=== PATIENT | female | born 1945 | race Caucasian/White ===

== ENCOUNTER 2021-04-30 08:32 | Emergency (ER) | payer MEDICARE, OTHER ==
[2021-04-30 08:41] VITALS: BP 144/69; PULSE 69; RESP 18; TEMP 97.8
--- NOTE | 2021-04-30 08:47 | ED ---
Upper Extremity HPI - General Chief Complaint: Extremity Injury, Upper Stated Complaint: Wrist pain Time Seen by Provider: 04/30/21 08:41 Source: patient, RN notes reviewed Mode of arrival: ambulatory Limitations: no limitations - History of Present Illness Initial Comments: This 76-year-old female presents emergency Department with chief complaint left wrist pain. She states this has been getting worse over the last 1 week. She doesn't believe that she may have slipped and fell into her bed and unsure she jammed it or not. She's been wearing a soft brace which has not helped. Patient is right-hand dominant. Denies any other notable injuries denies any paresthesias no other complaints. She states it is swollen. - Related Data Home Medications Medication Instructions Recorded Confirmed Metoprolol Tartrate [Lopressor] 25 mg PO BID 06/24/15 05/26/16 Sertraline [Zoloft] 100 mg PO HS 06/24/15 05/26/16 Simvastatin [Zocor] 20 mg PO DAILY 06/24/15 05/26/16 buPROPion XL [Wellbutrin XL] 300 mg PO DAILY 06/24/15 05/26/16 lisinopriL [Zestril] 10 mg PO HS 06/24/15 05/26/16 Hydrocodone/Acetaminophen [[place] 1 tab PO DAILY PRN 05/26/16 05/26/16 7.5-325] Allergies Allergy/AdvReac Type Severity Reaction Status Date / Time No Known Allergies Allergy Verified 04/30/21 08:37 Review of Systems ROS Statement: Those systems with pertinent positive or pertinent negative responses have been documented in the HPI. ROS Other: All systems not noted in ROS Statement are negative. Past Medical History Past Medical History: Coronary Artery Disease (CAD), Diabetes Mellitus History of Any Multi-Drug Resistant Organisms: None Reported Past Surgical History: Cholecystectomy, Hysterectomy Past Psychological History: Depression Smoking Status: Current every day smoker Past Alcohol Use History: None Reported Past Drug Use History: None Reported General Exam Limitations: no limitations General appearance: alert, in no apparent distress Head exam: Present: atraumatic, normocephalic, normal inspection Respiratory exam: Present: normal lung sounds bilaterally. Absent: respiratory distress, wheezes, rales, rhonchi, stridor Cardiovascular Exam: Present: regular rate, normal rhythm, normal heart sounds. Absent: systolic murmur, diastolic murmur, rubs, gallop, clicks Extremities exam: Present: other (Left wrist there is tenderness over the brachial radialis region, there is mild swelling, tenderness over the radius neurovascular intact with no tenderness proximal or distal) Neurological exam: Present: alert, reflexes normal. Absent: motor sensory deficit Course Vital Signs 04/30/21 08:37 Temperature 97.8 F Pulse Rate 69 Respiratory 18 Rate Blood Pressure 144/69 O2 Sat by Pulse 92 L Oximetry Procedures - Orthopedic Splinting/Casting Injury #1 Side: left Upper Extremity Injury Location: short arm, wrist Upper Extremity Immobilizer: thumb spica, synthetic pre-padded splint Medical Decision Making - Medical Decision Making X-rays shows evidence of osteoarthritis. Patient did have known injury has a Left wrist sprain, maybe some underlying denies will be splinted follow-up with orthopedics. Disposition Clinical Impression: Left wrist sprain, Left wrist tendonitis Disposition: HOME SELF-CARE Condition: Stable Instructions (If sedation given, give patient instructions): Wrist Injury (ED) Additional Instructions: Please return to the Emergency Department if symptoms worsen or any other concerns. Is patient prescribed a controlled substance at d/c from ED?: No Referrals: Hieu Espinoza MD [Primary Care Provider] - 1-2 days Robby Fofana DO [Doctor of Osteopathic Medicine] - 1-2 days Time of Disposition: 09:51
--- NOTE | 2021-04-30 09:11 | XR ---
Left wrist HISTORY: Trauma and pain 4 views of the left wrist There is soft tissue swelling present. Some underlying arthropathy changes are present. There is a sm all ossific density present at the lateral margin of the distal left radius which appears to be well- corticated and may be chronic, correlate for remote history of trauma. There is no evident dislocatio n. Bone mineralization is reduced. IMPRESSION: No acute fracture or dislocation is suspected, correlate for history of trauma. Osteoarth ritis.
== END 2021-04-30 10:02 | disposition home or self-care (01) ==
LOC: EC 08:32
DX: S63.502A Unspecified sprain of left wrist, initial encounter (principal); M77.8 Other enthesopathies, not elsewhere classified; E11.9 Type 2 diabetes mellitus without complications; I25.10 Atherosclerotic heart disease of native coronary artery without angina pectoris; F32.9 Major depressive disorder, single episode, unspecified; F17.200 Nicotine dependence, unspecified, uncomplicated; X58.XXXA Exposure to other specified factors, initial encounter
CPT/HCPCS: 29125; 99283

== ENCOUNTER 2022-05-24 10:29 | Emergency (ER) | payer MEDICARE, OTHER ==
[2022-05-24 11:12] VITALS: BP 123/69; PULSE 60; RESP 18; TEMP 97.8
[2022-05-24 12:13] LABS: Basophils % (A) 0 %; Eosinophils # (A) 0.3 k/uL (0-0.7); Eosinophils % (A) 4 %; HCT 40.8 % (34.0-46.0); HGB 13.6 gm/dL (11.4-16.0); Lymphocytes # (A) 1.7 k/uL (1.0-4.8); Lymphocytes % (A) 26 %; MCH 32.3 pg (25.0-35.0); MCHC 33.2 g/dL (31.0-37.0); MCV 97.2 fL (80.0-100.0); Mean Platelet Volume 7.8; Monocytes # (A) 0.5 k/uL (0-1.0); Monocytes % (A) 7 %; Neutrophils # (A) 3.8 k/uL (1.3-7.7); Neutrophils % (A) 58 %; Platelet Count 203 k/uL (150-450); RDW 13.2 % (11.5-15.5); WBC 6.5 k/uL (3.8-10.6)
--- NOTE | 2022-05-24 12:18 | ED ---
Extremity Problem HPI - General Chief complaint: Extremity Problem,Nontraumatic Stated complaint: LT leg pain,Knee swelling Time Seen by Provider: 05/24/22 11:35 Source: patient, RN notes reviewed Mode of arrival: ambulatory Limitations: no limitations - History of Present Illness Initial comments: Patient is 77-year-old female presents to the emergency room with complaints of lower extremity swelling. She reports that the swelling is primar carlos manuel to her left lower extremity which is larger than her right lower extremity and the swelling is nonpitting. She reports has been going on for approximately 3-4 weeks. She reports that the pain and swelling begins on the medial aspect of her knee and radiates down. She denies any trauma to her knee or lower extremity. She denies any redness wounds or swelling. She denies any fevers, chills, shortness of breath, cough, orthopnea, chest pain, abdominal pain, nausea, vomiting or past medical history of for congestive heart failure. She does have a past medical history significant for hypertension, hyperlipidemia and depression. Overall with the exception of her left lower extremity discomfort she denies any other complaints or concerns at this time. - Related Data Home Medications Medication Instructions Recorded Confirmed Metoprolol Tartrate [Lopressor] 25 mg PO BID 06/24/15 05/26/16 Sertraline [Zoloft] 100 mg PO HS 06/24/15 05/26/16 Simvastatin [Zocor] 20 mg PO DAILY 06/24/15 05/26/16 buPROPion XL [Wellbutrin XL] 300 mg PO DAILY 06/24/15 05/26/16 lisinopriL [Zestril] 10 mg PO HS 06/24/15 05/26/16 Hydrocodone/Acetaminophen [[place] 1 tab PO DAILY PRN 05/26/16 05/26/16 7.5-325] Allergies Allergy/AdvReac Type Severity Reaction Status Date / Time No Known Allergies Allergy Verified 05/24/22 11:12 Review of Systems ROS Statement: Those systems with pertinent positive or pertinent negative responses have been documented in the HPI. ROS Other: All systems not noted in ROS Statement are negative. Past Medical History Past Medical History: Coronary Artery Disease (CAD), Diabetes Mellitus History of Any Multi-Drug Resistant Organisms: None Reported Past Surgical History: Cholecystectomy, Hysterectomy Past Psychological History: Depression Smoking Status: Current every day smoker Past Alcohol Use History: None Reported Past Drug Use History: None Reported General Exam Limitations: no limitations Course Vital Signs 05/24/22 11:08 Temperature 97.8 F Pulse Rate 60 Respiratory 18 Rate Blood Pressure 123/69 O2 Sat by Pulse 96 Oximetry Medical Decision Making - Medical Decision Making Due to unilateral swelling though low probability of DVT will check Doppler. Will also check x-ray of right knee. Suspect underlying osteoarthritis with decreased range of motion making lower extremity swelling worse. Will check CBC and CMP to evaluate hydration status along with probable BMP to evaluate for overload status. No indication for other diagnostic imaging at this time. Doppler negative for acute DVT concern for possible cystic post popliteal. X-ray of the left knee consistent with osteoarthritic changes most significant with tricompartment where her pain is persisting. Labs show mild dehydration. No evidence of infection or CHF. Full discharge home. Encouraged range of motion as tolerated for knee and follow-up with her primary care provider in regards to arthritis and left popliteal cyst. Advised to utilize ibuprofen or Tylenol as needed for pain. Case discussed with Dr. Bean. - Lab Data Result diagrams: 05/24/22 11:55 05/24/22 11:55 Lab Results 05/24/22 05/24/22 05/24/22 Range/Units 11:55 11:55 11:55 WBC 6.5 (3.8-10.6) k/uL RBC 4.20 (3.80-5.40) m/uL Hgb 13.6 (11.4-16.0) gm/dL Hct 40.8 (34.0-46.0) % MCV 97.2 (80.0-100.0) fL MCH 32.3 (25.0-35.0) pg MCHC 33.2 (31.0-37.0) g/dL RDW 13.2 (11.5-15.5) % Plt Count 203 (150-450) k/uL MPV 7.8 Neutrophils % 58 % Lymphocytes % 26 % Monocytes % 7 % Eosinophils % 4 % Basophils % 0 % Neutrophils # 3.8 (1.3-7.7) k/uL Lymphocytes # 1.7 (1.0-4.8) k/uL Monocytes # 0.5 (0-1.0) k/uL Eosinophils # 0.3 (0-0.7) k/uL Basophils # 0.0 (0-0.2) k/uL Sodium 136 L (137-145) mmol/L Potassium 4.6 (3.5-5.1) mmol/L Chloride 105 (98-107) mmol/L Carbon Dioxide 27 (22-30) mmol/L Anion Gap 4 mmol/L BUN 25 H (7-17) mg/dL Creatinine 0.98 (0.52-1.04) mg/dL Est GFR (CKD-EPI)AfAm 65 (>60 ml/min/1.73 sqM) Est GFR (CKD-EPI)NonAf 57 (>60 ml/min/1.73 sqM) Glucose 106 H (74-99) mg/dL Calcium 9.8 (8.4-10.2) mg/dL Magnesium 2.0 (1.6-2.3) mg/dL Total Bilirubin 0.4 (0.2-1.3) mg/dL AST 20 (14-36) U/L ALT 18 (4-34) U/L Alkaline Phosphatase 81 (38-126) U/L NT-Pro-B Natriuret Pep 623 pg/mL Total Protein 7.1 (6.3-8.2) g/dL Albumin 4.2 (3.5-5.0) g/dL Urine Color Urine Appearance (Clear) Urine pH (5.0-8.0) Ur Specific [place] (1.001-1.035) Urine Protein (Negative) Urine Glucose (UA) (Negative) Urine Ketones (Negative) Urine Blood (Negative) Urine Nitrite (Negative) Urine Bilirubin (Negative) Urine Urobilinogen (<2.0) mg/dL Ur Leukocyte Esterase (Negative) Urine RBC (0-5) /hpf Urine WBC (0-5) /hpf Ur Squamous Epith Cells (0-4) /hpf Urine Bacteria (None) /hpf Urine Mucus (None) /hpf 05/24/22 Range/Units 13:00 WBC (3.8-10.6) k/uL RBC (3.80-5.40) m/uL Hgb (11.4-16.0) gm/dL Hct (34.0-46.0) % MCV (80.0-100.0) fL MCH (25.0-35.0) pg MCHC (31.0-37.0) g/dL RDW (11.5-15.5) % Plt Count (150-450) k/uL MPV Neutrophils % % Lymphocytes % % Monocytes % % Eosinophils % % Basophils % % Neutrophils # (1.3-7.7) k/uL Lymphocytes # (1.0-4.8) k/uL Monocytes # (0-1.0) k/uL Eosinophils # (0-0.7) k/uL Basophils # (0-0.2) k/uL Sodium (137-145) mmol/L Potassium (3.5-5.1) mmol/L Chloride (98-107) mmol/L Carbon Dioxide (22-30) mmol/L Anion Gap mmol/L BUN (7-17) mg/dL Creatinine (0.52-1.04) mg/dL Est GFR (CKD-EPI)AfAm (>60 ml/min/1.73 sqM) Est GFR (CKD-EPI)NonAf (>60 ml/min/1.73 sqM) Glucose (74-99) mg/dL Calcium (8.4-10.2) mg/dL Magnesium (1.6-2.3) mg/dL Total Bilirubin (0.2-1.3) mg/dL AST (14-36) U/L ALT (4-34) U/L Alkaline Phosphatase (38-126) U/L NT-Pro-B Natriuret Pep pg/mL Total Protein (6.3-8.2) g/dL Albumin (3.5-5.0) g/dL Urine Color Yellow Urine Appearance Clear (Clear) Urine pH 5.5 (5.0-8.0) Ur Specific [place] 1.013 (1.001-1.035) Urine Protein Negative (Negative) Urine Glucose (UA) Negative (Negative) Urine Ketones Negative (Negative) Urine Blood Trace H (Negative) Urine Nitrite Negative (Negative) Urine Bilirubin Negative (Negative) Urine Urobilinogen <2.0 (<2.0) mg/dL Ur Leukocyte Esterase Negative (Negative) Urine RBC 1 (0-5) /hpf Urine WBC 5 (0-5) /hpf Ur Squamous Epith Cells 1 (0-4) /hpf Urine Bacteria Rare H (None) /hpf Urine Mucus Rare H (None) /hpf Disposition Clinical Impression: Osteoarthritis of left knee Disposition: HOME SELF-CARE Condition: Stable Instructions (If sedation given, give patient instructions): Osteoarthritis (ED) Additional Instructions: Recommend range of motion for arthritis to left knee. Avoid bedrest. Utilize Tylenol or ibuprofen [id number] as needed for pain. Please follow-up with your primary care provider for further evaluation and treatment of her arthritis along with possible workup of popliteal cyst. Please return to the Emergency Department if symptoms worsen or any other concerns. Is patient prescribed a controlled substance at d/c from ED?: No Referrals: Hieu Espinoza MD [Primary Care Provider] - 1-2 days Time of Disposition: 13:54
[2022-05-24 12:27] LABS: Albumin 4.2 g/dL (3.5-5.0); Calcium 9.8 mg/dL (8.4-10.2); Potassium 4.6 mmol/L (3.5-5.1); Total Bilirubin 0.4 mg/dL (0.2-1.3); Total Protein 7.1 g/dL (6.3-8.2)
--- NOTE | 2022-05-24 12:46 | XR ---
EXAMINATION TYPE: XR knee limited LT DATE OF EXAM: 05/24/2022 12:41 PM INDICATION: Patient age:Female; 77 years old; Reason for study: pain swelling; COMPARISON: None. TECHNIQUE: The Left knee(s) was examined in 2 projections. Frontal, lateral views. FINDINGS: Transverse 9 most pronounced in the medial joint. There is mild osteophyte formation of th e tibial plateau, patella and femoral condyles. No evidence of any acute osseous pathology, joint spa ce narrowing, soft tissue swelling, or joint effusion is noted. IMPRESSION: 1. No acute osseous pathology. 2. Moderate tricompartmental osteoarthritic changes most pronounced in the medial knee.
--- NOTE | 2022-05-24 13:25 | US ---
EXAMINATION TYPE: US venous doppler duplex LE LT DATE OF EXAM: 05/24/2022 1:16 PM COMPARISON: NONE CLINICAL HISTORY: pain swelling. pain and edema left leg for 1 month SIDE PERFORMED: left TECHNIQUE: The lower extremity deep venous system is examined utilizing real time linear array sonog domonique with graded compression, doppler sonography and color-flow sonography. VESSELS IMAGED: Common Femoral Vein Deep Femoral Vein Greater Saphenous Vein * Femoral Vein Popliteal Vein Small Saphenous Vein * Proximal Calf Veins (* superficial vessels) Left Leg: no evidence of DVT. complex anechoic area left popliteal fossa = 4.2 x 2.6 x 3.0cm, Ybarra' s cyst IMPRESSION: 1. No diagnostic evidence of DVT. 2 complex anechoic area in the popliteal fossa may represent a complicated popliteal fossa cyst. Bart mmend MRI for further evaluation to exclude other etiologies.
[2022-05-24 13:42] LABS: Appearance,Urine Clear (Clear); Bacteria,Urine Rare /hpf; Bilirubin,Urine Negative (Negative); Blood,Urine Trace (Negative); Color,Urine Yellow; Glucose,Urine (UA) Negative (Negative); Ketones,Urine Negative (Negative); Leukocyte Esterase,Urine Negative (Negative); Mucus,Urine Rare /hpf; Nitrite,Urine Negative (Negative); PH, Urine 5.5 (5.0-8.0); Protein,Urine Negative (Negative); RBC,Urine 1 /hpf (0-5); Specific Gravity,Urine 1.013 (1.001-1.035); Squamous Epithelial Cell,Urine 1 /hpf (0-4); Urobilinogen,Urine <2.0 mg/dL (<2.0); WBC,Urine 5 /hpf (0-5)
== END 2022-05-24 14:01 | disposition home or self-care (01) ==
LOC: EC 10:29
DX: M17.12 Unilateral primary osteoarthritis, left knee (principal); E11.9 Type 2 diabetes mellitus without complications; F17.200 Nicotine dependence, unspecified, uncomplicated
CPT/HCPCS: 36415; 80053; 81001; 83735; 83880; 85025; 99284